=== PATIENT | male | born 1950 | race Caucasian/White ===

== ENCOUNTER 2018-05-14 06:12 | Emergency (ER) | payer BC ==
[2018-05-14] MEDS ORDERED: Oxymetazoline HCl 0.05% ( 15 ML ) ONE (06:37)
== END 2018-05-14 08:03 | disposition home or self-care (01) ==
LOC: NAV ERS 06:12
DX: I10 Essential (primary) hypertension (principal); R04.0 Epistaxis; E78.5 Hyperlipidemia, unspecified; J44.9 Chronic obstructive pulmonary disease, unspecified; F17.210 Nicotine dependence, cigarettes, uncomplicated; Z79.82 Long term (current) use of aspirin; Z79.899 Other long term (current) drug therapy; Z79.891 Long term (current) use of opiate analgesic

== ENCOUNTER 2018-05-14 08:46 | Emergency (ER) | payer BC | END 2018-05-14 09:10 | disposition home or self-care (01) | LOC: NAV ERS 08:46 | DX: R04.0 Epistaxis (principal); E78.5 Hyperlipidemia, unspecified; I10 Essential (primary) hypertension; F17.210 Nicotine dependence, cigarettes, uncomplicated; J44.9 Chronic obstructive pulmonary disease, unspecified; Z79.82 Long term (current) use of aspirin; Z79.899 Other long term (current) drug therapy; Z79.891 Long term (current) use of opiate analgesic | CPT/HCPCS: 30903; 99283 ==

== ENCOUNTER 2018-05-16 13:50 | Emergency (ER) | payer BC | END 2018-05-16 14:22 | disposition home or self-care (01) | LOC: NAV ERS 13:50 | DX: Z48.00 Encounter for change or removal of nonsurgical wound dressing (principal); E78.00 Pure hypercholesterolemia, unspecified; I10 Essential (primary) hypertension; J44.9 Chronic obstructive pulmonary disease, unspecified; F17.210 Nicotine dependence, cigarettes, uncomplicated; Z79.82 Long term (current) use of aspirin; Z79.899 Other long term (current) drug therapy | CPT/HCPCS: 99282 ==